=== PATIENT | female | born 1950 | race Caucasian/White ===

== ENCOUNTER 2020-08-02 10:02 | Emergency (ER) | payer BC, SELFPAY ==
[2020-08-02 10:27] VITALS: BP 164/81; PULSE 83; RESP 18; TEMP 36.6; O2SAT 98; BMI 20.4
[2020-08-02 10:35] VITALS: PULSE 78; O2SAT 98
--- NOTE | 2020-08-02 10:35 | W.ED.ANIMALB ---
HPI - Animal Bite General: Chief Complaint: Animal Bite Stated Complaint: R HAND INJURY Time Seen by Provider: 08/02/20 10:35 Source: patient Mode of arrival: ambulatory Limitations: no limitations History of Present Illness: HPI narrative: giving her 12 year old dog a shot as he is passing, he bit her right hand complaint: animal bite Onset (ago): hour(s) (1) Animal: dog Description of animal: household pet Mechanism: bite and contact with mucous membranes Location: other Location - Extremities: Right: hand Pain description: burning Severity scale (1-10): 4 Context: other (giving shot (dog is passing away)) Related Data: Patient tetanus UTD: Yes Review of Systems General: Reports: 10 or more systems reviewed and unremarkable except in HPI and below PFSH ED PFSH: Social History Smoking and tobacco status: current every day smoker Alcohol intake: current Physical Exam Const: COMMON NORMALS: no acute distress, patient oriented x3, no limitations and alert GENERAL APPEARANCE: cooperative and comfortable ORIENTATION/CONSCIOUSNESS: Yes awake, Yes oriented to person, Yes oriented to place and Yes oriented to time HENMT: COMMON NORMALS: normocephalic, atraumatic, external ears normal, EAC's normal, TM's normal bilaterally and Normal external nose present HEAD & SCALP: normal to inspection, normocephalic and atraumatic FACE & SINUS: normal facial exam, sinuses nontender and face symmetric NOSE: Normal external nose present, Normal nares present and No nasal discharge present EXTERNAL EAR: Yes external ears normal EXTERNAL AUDITORY CANAL: EAC's normal TYMPANIC MEMBRANE: TM's normal bilaterally MOUTH: Normal oral and palatal mucosa present, lip normal and tongue normal THROAT: posterior oropharynx normal, tonsils normal and uvula midline Eye: COMMON NORMALS: Equal, round and reactive pupils present, EOMs intact bilaterally and conjunctivae normal GENERAL EYE: appearance normal, both eyes and all related structures and normal light reflex EYELID: eyelids normal CONJUNCTIVA: Yes conjunctivae normal PUPIL: Yes Equal, round and reactive pupils present EOM: Yes EOM abnormal DIRECT OPHTHALMOSCOPY: Yes normal light reflex Neck/C-Spine: COMMON NORMALS: full ROM, no lymphadenopathy, supple, no meningeal signs, no JVD and Thyroid normal GENERAL: Yes normal visual inspection THYROID: Thyroid normal CERVICAL SPINE: Yes cervical ROM normal and Yes normal cervical lordosis Lymph: LYMPHATIC: no lymphadenopathy noted Chest: COMMONS NORMALS: normal inspection of the chest and normal palpation of entire chest wall Resp: COMMON NORMALS: normal respiratory effort, No retractions and clear to auscultation bilaterally AUSCULTATION: clear to auscultation bilaterally Cardio: COMMON NORMALS: no JVD, regular rate, regular rhythm, S1 normal heart sound present, S2 normal heart sound present, No gallops present (Cardio), No clicks present (Cardio), No murmurs present (Cardio), No rub (Cardio) and Peripheral pulses 2+ throughout RATE: regular rate RHYTHM: regular rhythm HEART SOUNDS: S1 normal heart sound present and S2 normal heart sound present PERIPHERAL PULSES: Peripheral pulses 2+ throughout GI: COMMON NORMALS: Normal to inspection, nondistended, normoactive bowel sounds present, Soft to palpation, non-tender and no masses PALPATION: Yes Soft to palpation : COMMON NORMALS: Yes no CVA tenderness and Yes normal external appearance BLADDER/KIDNEY EXAM: Yes no CVA tenderness Back/Pelvis: COMMON NORMALS: no CVA tenderness, thoracic and lumbar spine normal to inspection, no thoracic nor lumbar tenderness and thoraco-lumbar ROM normal Extremity: COMMON NORMALS: normal to inspection, full ROM, capillary refill normal, no joint enlargement, no clubbing, cyanosis or edema, no calf tenderness and no pedal edema GENERAL: Yes normal exam except as noted RIGHT UPPER EXTREMITY: Yes lower arm (small superficial laceration to anterior aspect of right arm) and Yes hand & digits (3.5 cm laceration, flap on right second digit, neurovascularly intact) Right hand and digits: Yes other (puncture on third and fourth finger) Neuro: COMMON NORMALS: patient oriented x3, moves all extremities, no focal motor deficits, no sensory deficits noted and gait normal SENSORIUM/ORIENTATION: Yes alert, Yes oriented to person, Yes oriented to place and Yes oriented to time MENINGEAL SIGNS: Yes no meningeal signs Psych: COMMON NORMALS: mental status grossly normal, Normal thought process present, cooperative, normal affect, speech normal and activity/motor behavior normal SPEECH: Yes normal speech THOUGHT PROCESS: Normal thought process present Skin: COMMON NORMALS: no rashes or lesions noted, no wounds and turgor normal GENERAL SKIN EXAM: no rashes or lesions noted and turgor normal Procedures Laceration Laceration 1: Site: hand (right second finger) Side (If applicable): right Description: flap Depth: simple, single layer Local Anesthetic: lidocaine 1% Amount of anesthesia used (mL): 4 Pre-repair: wound explored, irrigated extensively and wound margins revised Skin layer closed with: other (prolene) Size (cm): 3-0 Technique: simple, interrupted Course ED course: Pt was givining her 12 year old great pyranees a shot as he is passing. He was confused and bit her right hand lacerating her second digit and puncturing the third and fourth fingers. She is UTD on shots as well as her dog. We will get xray and begin antibiotics. Reevaluation(s): Reevaluation #1: XRAY negative for acute fracture. Sutures intact. Antibx prescribed. Follow up with PCP for removal of sutures in 7 to 10 days. Time: 12:29 Vital Signs: Vital signs: Vital Signs Temperature 97.9 F 08/02/20 10:27 Pulse Rate 78 08/02/20 10:35 Respiratory Rate 18 08/02/20 10:27 Blood Pressure 164/81 08/02/20 10:27 Pulse Oximetry 98 08/02/20 10:35 MDM - Animal Bite Imaging Data^: Xray Ortho: Radiologist's impression: [facility] [employer] [id number] XRay Report Signed Patient: Anastacia So Unit #: [id number] : 1950 Age/Sex: 70 / F ADM Date: 08/02/20 Loc: ER Room/Bed: Attending Dr: Ordering Provider/Ordering MD: Dominique Lin NP Date of Service: 08/02/20 Procedure(s): XR hand RT 2V [id number] Accession Number(s): [id number] Report Number: [id number] WS: [id number] Right hand, AP and lateral views, 08/02/2020 Clinical Data: trauma Comparison: None. Findings: No fractures or dislocations are seen. The soft tissues are unremarkable. There is osteoarthritic changes DIP joints of the second through fifth fingers of right hand.There is osteoarthritis of the IP joint of the right thumb. XR/XR hand RT 2V [id number] Impression: 1. Negative for fracture. 2. 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 Dictated By: Martha Aquino MD Signed By: Martha Aquino MD Signed Date/Time: 08/02/208 DD/ 1126 Discharge Plan Discharge Condition: Stable Prescriptions: New amoxicillin-pot clavulanate [Augmentin] 875-125 mg tablet 1 tab PO BID Qty: 20 RF: 0 No Action amlodipine-atorvastatin 5-10 mg tablet 1 tab PO DAILY RF: 0 calcium carbonate 500 mg calcium (1,250 mg) capsule 1,000 mg PO DAILY RF: 0 cholecalciferol (vitamin D3) 25 mcg (1,000 unit) capsule 25 mcg PO DAILY RF: 0 cyanocobalamin (vitamin B-12) 1,000 mcg/mL kit 100 mcg IM .WEEKLY RF: 0 fexofenadine 30 mg tablet 60 mg PO DAILY RF: 0 fluocinonide 0.05 % cream 1 applic TOPICAL DAILY PRNRF: 0 triamterene-hydrochlorothiazid 37.5-25 mg tablet 1 tab PO DAILY RF: 0 levothyroxine 125 mcg capsule 125 mcg PO DAILY RF: 0 Fiber Therapy (m-cellulose) 500 mg tablet 500 mg PO DAILY RF: 0 potassium chloride [Klor-Con M20] 20 mEq tablet,ER particles/crystals 20 meq PO DAILY RF: 0 romosozumab-aqqg 210mg/2.34mL ( 105mg/1.17mLx2) syringe 210 mg SUBCUT .MONTHLY RF: 0 sertraline 50 mg tablet 50 mg PO DAILY RF: 0 coenzyme Q10 [Co Q-10] 10 mg capsule 10 mg PO DAILY RF: 0 Discharge Orders: Discharge ED (Routine); Ordered 08/02/20 Ordered By: Dominique Lin Referrals: Emil Decker MD [Primary Care Provider] - Discharge Diet: Usual diet Discharge Activity: Resume usual activity Activity Restrictions/Additional Instructions: Clean wound twice per day and cover with dry gauze after applying neosporin. Finger splint to help with healing. Leave dressing in place for 24 hours. Return for concerns of infection. Neosporin over any puncture wounds and clean thoroughly twice per day as well. Sutures can be removed in 7 to 10 days. Coding Level of Care Code ED Supervisor Filling And Packing for Chg Fwd Exam Comprehensive
--- NOTE | 2020-08-02 11:17 | XR_ITS ---
WS: [id number] Right hand, AP and lateral views, 08/02/2020 Clinical Data: trauma Comparison: None. Findings: No fractures or dislocations are seen. The soft tissues are unremarkable. There is osteoa rthritic changes DIP joints of the second through fifth fingers of right hand.There is osteoarthritis of the IP joint of the right thumb. XR/XR hand RT 2V [id number] Impression: 1. Negative for fracture. 2. 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
[2020-08-02] MEDS: amoxicillin-clav 875-125 mg Tablet 1 TAB PO (11:39)
[2020-08-02] MEDS: lidocaine 1% INJ 20 mL INJECTION (11:39)
== END 2020-08-02 13:12 | disposition home or self-care (01) ==
PROVIDERS: Emergency Provider Nurse Practitioner Family; PCP Internal Medicine
DX: S61.250A Open bite of right index finger without damage to nail, initial encounter (principal); S61.252A Open bite of right middle finger without damage to nail, initial encounter; S61.254A Open bite of right ring finger without damage to nail, initial encounter; W54.0XXA Bitten by dog, initial encounter
CPT/HCPCS: 12002; 29130; 73120; 99283